=== PATIENT | female | born 1990 | race African-American/Black ===

== ENCOUNTER 2016-09-13 12:06 | Emergency (ER) | payer MEDICAID ==
[~2016-09-13] VITALS: Ht 172.7 cm; Wt 98.0 kg
[2016-09-13 12:48] VITALS: BP_SYST 122
--- NOTE | 2016-09-13 13:10 | NUR ---
PT. PLACED IN ROOM 6 ASSUMED PT. CARE
[2016-09-13] MEDS ORDERED: DIPHENHYDRAMINE INJ 50 MG/ML VIAL IVP ONE (13:15)
[2016-09-13] MEDS ORDERED: NS 500 ML IV ONE (13:15)
[2016-09-13] MEDS ORDERED: PROCHLORPERAZINE EDISYLATE 10 MG/2 ML VIAL IVP ONE (13:15)
[2016-09-13] MEDS ORDERED: DEXAMETHASONE SOD PHOSPHATE 10 MG/ML VIAL IVP ONE (13:15)
[2016-09-13] MEDS ORDERED: KETOROLAC TROMETHAMINE 30 MG VIAL IVP ONE (13:15)
--- NOTE | 2016-09-13 13:15 | NUR ---
Pt. to ER AAOX4 C/O frontal headache since yesterday with lightheadedness c/o pain /10 and sensivity to light, denies SOB, skin warm to touch clear speech follows commands, denies trauma denies N/V
--- NOTE | 2016-09-13 13:20 | NUR ---
DR. WRIGHT AT BEDSIDE EXAMINING THE PT.
--- NOTE | 2016-09-13 13:30 | NUR ---
# 20 gauge angiocath placed to lac. Use of asceptic technique. Opsite placed over site. Blood return noted. Flushed with 10 cc of normal saline. No evidence of infiltration noted. Patient tolerated well.
--- NOTE | 2016-09-13 14:00 | NUR ---
iv fluids running no infiltration noted
[2016-09-13] MEDS ORDERED: PROCHLORPERAZINE EDISYLATE 10 MG/2 ML VIAL ONE (14:24)
[2016-09-13 15:00] VITALS: BP_SYST 127
--- NOTE | 2016-09-13 15:00 | NUR ---
Patient given written and verbal discharge instructions and verbalizes understanding. ER MD Dr. Kennedy discussed with patient the results and treatment provided. Patient in stable condition. ID arm band removed. IV catheter removed intact and dressing applied, no active bleeding. No Rx given. Patient educated on pain management and to follow up with PMD. Pain Scale 0/10 Opportunity for questions provided and answered.
== END 2016-09-13 15:00 | disposition home or self-care (01) ==
LOC: SED 12:06
DX: G43.909 Migraine, unspecified, not intractable, without status migrainosus (principal); H53.149 Visual discomfort, unspecified; R03.0 Elevated blood-pressure reading, without diagnosis of hypertension
CPT/HCPCS: 96361; 96374; 96375; 99284; J0780; J1100; J1200; J1885; J7040

== ENCOUNTER 2017-06-22 16:56 | Emergency (ER) | payer MEDICAID ==
[~2017-06-22] VITALS: Ht 172.7 cm; Wt 93.0 kg
[2017-06-22 17:07] VITALS: BP_SYST 112
[2017-06-22] MEDS ORDERED: KETOROLAC TROMETHAMINE 30 MG VIAL IVP ONE (17:30)
[2017-06-22] MEDS ORDERED: NACL 0.9% 1,000 ML IV ONE (17:30)
[2017-06-22 17:43] LABS: BASOPHILS # (AUTO) 0.1 K/uL (0.0-0.2); BASOPHILS % (AUTO) 2.4 % (0.0-2.0); EOSINOPHILS # (AUTO) 0.1 K/uL (0.0-0.4); HEMATOCRIT 36.4 % (36-48); HEMOGLOBIN 12.1 g/dL (12.0-16.0); MEAN CORPUSCULAR HEMOGLOBIN 28 pg (27-31); MEAN CORPUSCULAR HGB CONC 33 % (32-36); MEAN CORPUSCULAR VOLUME 85 fL (79.0-98.0); MONOCYTES # (AUTO) 0.4 K/uL (0.0-1.0); MONOCYTES % (AUTO) 7.9 % (1.7-9.3); NEUTROPHILS # (AUTO) 2.5 K/uL (1.8-7.7); NEUTROPHILS % (AUTO) 47.7 % (40.0-70.0); PLATELET COUNT (AUTO) 293 K/uL (130-430); RED BLOOD CELL COUNT(AUTO) 4.28 MIL/uL (4.2-6.2); RED CELL DISTRIBUTION WIDTH 12.7 % (9.0-15.0); WHITE BLOOD COUNT (AUTO) 5.1 K/uL (4.8-10.8)
[2017-06-22 17:54] LABS: BILIRUBIN,URINE NEGATIVE (NEGATIVE); BLOOD, URINE 3+ (NEGATIVE); CLARITY/URINE CLEAR (CLEAR); COLOR,URINE YELLOW (YELLOW); GLUCOSE,URINE NEGATIVE (NEGATIVE); KETONES,URINE NEGATIVE (NEGATIVE); LEUKOCYTE ESTERASE ,URINE NEGATIVE (NEGATIVE); NITRITE, URINE NEGATIVE (NEGATIVE); PH,URINE 5.5 (5.0-8.0); PROTEIN URINE NEGATIVE (NEGATIVE); UROBILINOGEN,URINE 0.2 (0.2-1.0)
[2017-06-22 17:56] LABS: CREATININE 0.71 mg/dL (0.55-1.30); POTASSIUM 3.8 mmol/L (3.5-5.1)
[2017-06-22 18:02] LABS: BACTERIA,URINE RARE /HPF (None Seen); WBC,URINE 0-3 /HPF (0-3)
[2017-06-22 19:01] VITALS: BP_SYST 115
[2017-06-24 08:32] LABS: CHLAMYDIA TRACHOMATIS NAA Negative (Negative); NEISSERIA GONORRHOEAE NAA Negative (Negative)
== END 2017-06-22 19:01 | disposition home or self-care (01) ==
LOC: SED 16:56
DX: N94.6 Dysmenorrhea, unspecified (principal); G43.909 Migraine, unspecified, not intractable, without status migrainosus
CPT/HCPCS: 36415; 76830; 76857; 80048; 81000; 81025; 85025; 87491; 87591; 96361; 96374; 99285; J1885; J7030

== ENCOUNTER 2017-07-07 08:25 | Emergency (ER) | payer MEDICAID ==
[~2017-07-07] VITALS: Ht 172.7 cm; Wt 93.0 kg
[2017-07-07 08:25] VITALS: BP_SYST 114
== END 2017-07-07 09:30 | disposition home or self-care (01) ==
LOC: SED 08:25
DX: G44.209 Tension-type headache, unspecified, not intractable (principal)
CPT/HCPCS: 99283

== ENCOUNTER 2021-01-15 17:56 | Emergency (ER) | payer MEDICAID, OTHER ==
[~2021-01-15] VITALS: Ht 175.3 cm; Wt 77.1 kg
[2021-01-15 18:05] VITALS: BP_SYST 122
--- NOTE | 2021-01-15 18:10 | NUR ---
Patient to ER bed 07 to gown for evaluation. Side rails up.
--- NOTE | 2021-01-15 18:11 | NUR ---
Urine collected and sent to lab.
--- NOTE | 2021-01-15 18:12 | NUR ---
ER at bedside examining patient.
--- NOTE | 2021-01-15 18:12 | NUR ---
Pt came into ER with complaint of vaginal bleeding Xsunday. Pt reports spotting on wednesday and now passing multiple large blood clots today. Pt complains of pelvic discomfort. Denies N/V/D. VSS no distress noted at this time. Resting in gurney. Breathing is even and unlabored.
--- NOTE | 2021-01-15 18:31 | NUR ---
Patient transported to radiology via ambulatory, accompanied by tech.
--- NOTE | 2021-01-15 18:49 | NUR ---
Pt back from Ultrasound
--- NOTE | 2021-01-15 19:00 | NUR ---
Lab at bedside.
[2021-01-15 19:44] LABS: BASOPHILS # (AUTO) 0.1 K/uL (0.0-0.2); BASOPHILS % (AUTO) 1.1 % (0.0-2.0); EOSINOPHILS # (AUTO) 0.1 K/uL (0.0-0.4); EOSINOPHILS % (AUTO) 1.2 % (0.0-4.0); HEMATOCRIT 38.9 % (36-48); HEMOGLOBIN 13.3 g/dL (12.0-16.0); LYMPHOCYTES # (AUTO) 2.2 K/uL (1.0-5.5); LYMPHOCYTES % (AUTO) 44.2 % (20.5-51.5); MEAN CORPUSCULAR HEMOGLOBIN 30 pg (27-31); MEAN CORPUSCULAR HGB CONC 34 % (32-36); MEAN CORPUSCULAR VOLUME 87 fL (79.0-98.0); MONOCYTES # (AUTO) 0.4 K/uL (0.0-1.0); MONOCYTES % (AUTO) 7.8 % (1.7-9.3); NEUTROPHILS # (AUTO) 2.3 K/uL (1.8-7.7); NEUTROPHILS % (AUTO) 45.7 % (40.0-70.0); PLATELET COUNT (AUTO) 269 K/uL (130-430); RED BLOOD CELL COUNT(AUTO) 4.47 MIL/uL (4.2-6.2); RED CELL DISTRIBUTION WIDTH 13.6 % (9.0-15.0)
[2021-01-15 19:49] LABS: CALCIUM 8.7 mg/dL (8.4-11.0); CREATININE 0.99 mg/dL (0.55-1.30); POTASSIUM 3.6 mmol/L (3.5-5.1)
[2021-01-15 19:54] LABS: PROTHROMBIN TIME 10.3 SECS (9.5-12.5)
[2021-01-15 19:59] LABS: TOTAL BILIRUBIN 0.4 mg/dL (0.0-1.0)
[2021-01-15 20:01] LABS: BILIRUBIN,URINE NEGATIVE (NEGATIVE); BLOOD, URINE 3+ (NEGATIVE); CLARITY/URINE CLOUDY (CLEAR); GLUCOSE,URINE NEGATIVE (NEGATIVE); KETONES,URINE TRACE (NEGATIVE); LEUKOCYTE ESTERASE ,URINE NEGATIVE (NEGATIVE); NITRITE, URINE NEGATIVE (NEGATIVE); PH,URINE 5.5 (5.0-8.0); PROTEIN URINE 2+ (NEGATIVE); UROBILINOGEN,URINE 0.2 (0.2-1.0)
--- NOTE | 2021-01-15 20:08 | NUR ---
Dr. Molina speaking with pt.
[2021-01-15 20:15] LABS: COLOR,URINE AMBER (YELLOW)
[2021-01-15 20:22] VITALS: BP_SYST 122
--- NOTE | 2021-01-15 20:22 | NUR ---
Patient given written and verbal discharge instructions and verbalizes understanding. ER MD discussed with patient the results and treatment provided. Patient in stable condition. ID arm band removed.. Patient educated on pain management and to follow up with PMD. Pain Scale 0/10. Opportunity for questions provided and answered. Medication side effect fact sheet provided.
[2021-01-15 20:45] LABS: BACTERIA,URINE FEW /HPF (None Seen); MUCUS,URINE 2+ /LPF (None Seen); RBC,URINE >100 /HPF (0-3)
== END 2021-01-15 20:22 | disposition home or self-care (01) ==
LOC: SED 17:56
DX: N92.6 Irregular menstruation, unspecified (principal)
CPT/HCPCS: 36415; 80053; 81000; 81025; 84702; 85025; 85610-TC; 85730-TC; 86900; 86901; 99283